=== PATIENT | born 1995 | race Caucasian/White ===

== ENCOUNTER 2023-03-29 08:54 | Outpatient (OUT) | payer OTHER, SELFPAY ==
--- NOTE | 2023-03-29 11:19 | RT_ITS ---
[facility] Test Date: 2023-03-29 Pat Name: BA JACOBO Department: Room: - Gender: [place]: Mino Rausch RRT : 1995 Requested By: Ryann Mir Order Number: [id number] Reading MD: Evan Chiang Interpretive Statements Pulmonary function testing was completed according to ATS criteria. Findings were considered accurate and reproducible. No bronchodilator was administered due to normal spirometric values. Spirometry: -FEV1/FVC: Normal @ 83% -FEV1: Normal @ 95% -FVC: Normal @ 93% Lung volumes by plethysmography: -RV: Reduced @ 32% -TLC: Low normal @ 81% Diffusion capacity: -DLCO: Normal @ 104% when corrected for Hb 14g/dL Flow-volume loop: -Normal shape Impressions: -Normal spirometry. A reduced RV with normal TLC and diffusion capacity suggests an obesity pattern based on stated BMI of 43.1. The diffusion capacity is normal. If asthma remains in the differential, may consider methacholine challenge testing. Clinical correlation required. Electronically Signed On 03-31-2023 18:18:45 EST by Evan Chiang
== END 2023-03-29 08:55 | disposition home or self-care (01) ==
LOC: CARD 08:58
PROVIDERS: PCP Nurse Practitioner Family; Visit Provider Nurse Practitioner Family
DX: J45.20 Mild intermittent asthma, uncomplicated (principal)
CPT/HCPCS: 94010; 94726; 94729